=== PATIENT | female | born 1960 ===

== ENCOUNTER → 2019-04-04 | Outpatient (CLI) | payer MEDICARE ==
[2019-04-07 05:12] LABS: HSV-1 DNA Negative (Negative); HSV-2 DNA Positive (Negative)
== END | disposition home or self-care (01) ==
LOC: LAB EV 08:26 → LAB SHORT 08:26
PROVIDERS: Physician Assistant Medical
DX: S31.40XA Unspecified open wound of vagina and vulva, initial encounter (principal)
CPT/HCPCS: 87070; 87086; 87205; 87529